=== PATIENT | female | born 1955 | race African-American/Black ===

== ENCOUNTER 2023-02-24 17:28 | Emergency (ER) | payer MEDICARE, OTHER ==
[~2023-02-24] VITALS: Ht 160 cm; Wt 57.3 kg
[2023-02-24] MEDS ORDERED: HYDROCODONE/ACETAMINOPHEN 5-325 MG TABLET PO ONE (19:15)
[2023-02-24] MEDS ORDERED: HYDR-4723 PO (21:44)
[2023-02-24 22:25] VITALS: BP 132/75
== END 2023-02-24 22:31 | disposition home or self-care (01) ==
LOC: EMS 17:46
DX: S80.02XA Contusion of left knee, initial encounter (principal); M25.552 Pain in left hip; E78.00 Pure hypercholesterolemia, unspecified; I10 Essential (primary) hypertension; F17.210 Nicotine dependence, cigarettes, uncomplicated; F14.90 Cocaine use, unspecified, uncomplicated; I63.9 Cerebral infarction, unspecified; Z88.0 Allergy status to penicillin; Z88.2 Allergy status to sulfonamides; W19.XXXA Unspecified fall, initial encounter; Y93.01 Activity, walking, marching and hiking; Y92.89 Other specified places as the place of occurrence of the external cause; Y99.8 Other external cause status
CPT/HCPCS: 73503; 73552; 99284